=== PATIENT | male | born 2000 | race Caucasian/White ===

== ENCOUNTER 2021-05-26 07:19 | Emergency (ER) | payer OTHER, SELFPAY ==
[2021-05-26 07:31] VITALS: BP 153/94; PULSE 83; RESP 16; TEMP 36.6; O2SAT 97; BMI 26.4
[2021-05-26 07:52] LABS: COVID19 -Nasal RAPID Negative (Negative)
--- NOTE | 2021-05-26 07:57 | ED_ITS ---
HPI - URI/Sore Throat General Chief Complaint: Upper Respiratory Symptoms Stated Complaint: sore throat x4 days Time Seen by Provider: 05/26/21 07:20 History of Present Illness HPI Narrative: 20-year-old male nonsmoker with noncontributory medical history presents with a chief complaint of a sore throat for the past 4 days. He denies runny nose, sneezing or cough. He did lose his voice a bit. He has had no fever or chills and denies any difficulty swallowing. He denies any perception of swelling in his throat or neck. He has had no chest pain, shortness of breath or cough. He states his symptoms seem to be worse in the morning and better gradually over the course of the day. Review of Systems Review of Systems Narrative: GENERAL: See HPI HEENT: See HPI RESPIRATORY: Denies dyspnea, cough, wheezing, hemoptysis, sputum. CARDIOVASCULAR: Denies chest pain, palpitations, orthopnea, edema, GASTROINTESTINAL: Denies nausea, vomiting, abdominal pain, diarrhea, constipation, melena. : Denies dysuria, frequency, incontinence, hematuria, urinary retention. MUSCULOSKELETAL: denies weakness, joint pain, or bony pain SKIN: Denies rash, skin lesions, or other NEUROLOGIC: Denies weakness, headache, numbness, change in speech, confusion, seizures, incoordination. PSYCHIATRIC: No concerning psychosocial issues. 12 point review of systems is negative except for those stated above Exam Narrative Exam Narrative: GEN: AOx3 and in mild distress EYES: Pupils are equal, round, and reactive to light and accommodation. Extraoccular muscles are intact bilaterally. There is no subconjunctival hemorrhage or exudate. ENT: Increased pharyngeal drainage, no erythema, swelling, exudate. No uvular pointing or evidence of abscess. Bilateral tympanic membranes are clifford, flat with normal landmarks CHEST: Lungs are clear to auscultation bilaterally and free of wheezes, rales, or rhonchi. Heart rate is regular rhythm, there are no murmurs, clicks, rubs, or gallops. There is no chest wall tenderness. ABD: Abdomen is soft and nontender. There is no guarding or rebound. Bowel s ounds are normal in all 4 quadrants. There is no mass or organomegaly. EXT: Full painless ROM of all extremities with no loss of sensation or strength. SKIN: Warm, pink, and dry. No erythema or rash Initial Vital Signs Initial Vital Signs: Vital Signs Temperature 97.8 F 05/26/21 07:31 Pulse Rate 83 05/26/21 07:31 Respiratory Rate 16 05/26/21 07:31 Blood Pressure 153/94 H 05/26/21 07:31 Pulse Oximetry 97 05/26/21 07:31 Course Orders Ordered: ED Orders 05/26/21 07:30 COVID19 -Nasal swab/Pre-Proc Stat 05/26/21 07:42 Throat Culture Stat Vital Signs Vital signs: Vital Signs - 8 hr 05/26/21 07:31 Temperature 97.8 F Pulse Rate 83 Respiratory Rate 16 Blood Pressure 153/94 H Pulse Oximetry 97 MDM - URI/Sore Throat Lab Data Labs: Lab Results 05/26/21 Range/Units 07:30 SARS-CoV-2 (PCR) Negative (Negative) Point of Care Testing Rapid Strep A Negative Discharge Plan Departure Patient Disposition: Home Clinical Impression: Pharyngitis Qualifiers: Pharyngitis/tonsillitis etiology: unspecified etiology Qualified Code(s): J02.9 - Acute pharyngitis, unspecified Instructions: DI for Pharyngitis/Tonsillopharyngitis -- Adult Activity Restrictions/Additional Instructions: *You have been diagnosed with [sore throat, no evidence of strep or COVID. The throat culture will take a few days to come back, if there are is evidence of a bacteria that would require an antibiotic we will call you. *What to do: *Please continue to take your regular medications as directed. [ ] New medication prescriptions sent to your pharmacy: [ ] [ ] New medication written as a paper prescription [ x] No new medications given *Please follow up with your primary care provider in 2-3 days, call for an appointment. Let them know you were seen in the Emergency Department and that we ask that you be seen in follow up. We will electronically transmit a record of today's note if your PCP is in our system *If you do not have a primary care provider please contact the [facility] Resource line at [phone]. They will ask some questions about your medical history and help get you set up with a doctor in the community. *Return to Emergency Department if you should have any new, worsening or concerning symptoms, such as [fever greater than 101 F, shaking chills, worsening pain, persistent vomiting or other bothersome symptoms]
== END 2021-05-26 08:16 | disposition home or self-care (01) ==
PROVIDERS: Emergency Provider Emergency Medicine
DX: J02.9 Acute pharyngitis, unspecified (principal); Z20.822 Contact with and (suspected) exposure to COVID-19
CPT/HCPCS: 87070; 87077; 87635; 87880; 99282; C9803